=== PATIENT | male | born 1960 | race Caucasian/White ===

== ENCOUNTER → 2017-01-06 | Outpatient (CLI) | payer BC ==
--- NOTE | 2017-01-06 15:33 | DIAGNOSTIC IMAGING REPORT ---
PELVIS 1 OR 2 VIEW ROUTINE CLINICAL HISTORY: FATIGUE, HEEL PAIN, POSITIVE MAYI COMPARISON STUDY: None. FINDINGS: No fracture or dislocation within the pelvis or hips. Cartilage spaces are maintained for age. The sacrum is intact. There are few pelvic phleboliths. Soft tissues are unremarkable. No evidence for sacroiliitis. IMPRESSION: No significant abnormality within the pelvis or hips. Electronically signed by: Errol Reddy M.D. 01/06/2017 3:32 PM Dictated Date/Time: 01/06/2017 3:31 PM
== END | disposition home or self-care (01) ==
LOC: C.RAD1850 15:17
PROVIDERS: ATTEND Internal Medicine Rheumatology
DX: M35.9 Systemic involvement of connective tissue, unspecified (principal); M79.673 Pain in unspecified foot; R53.83 Other fatigue; R76.8 Other specified abnormal immunological findings in serum

== ENCOUNTER → 2017-01-12 | Outpatient (CLI) | payer BC ==
--- NOTE | 2017-01-12 15:59 | DIAGNOSTIC IMAGING REPORT ---
WHOLE BODY BONE SCAN HISTORY: M35.9 Undifferentiated connective tissue [id number] Heel pain. RADIOTRACER: 26.6 mCi Tc-99m MDP STUDY/IMAGES: Planar anterior and posterior whole body imaging was performed 3 hours following the intravenous administration of radiotracer. COMPARISON: None. FINDINGS: Focus of mild radiotracer uptake seen within the left mid cervical spine facet. This favors degenerative change. Small foci of radiotracer uptake seen within the bilateral knees likely also representing degenerative change. Small focus of radiotracer uptake seen within the right posterior calcaneus. Tiny focus of radiotracer uptake seen within the left superior orbit. IMPRESSION: 1. Focal area of radiotracer uptake seen within the right posterior calcaneus. Correlation with plain films recommended for further evaluation. 2. Tiny focus of radiotracer uptake seen in the left supraorbital rim. This is also nonspecific and can be further evaluated with a maxillofacial CT if clinically warranted. 3. Additional areas of radiotracer uptake are consistent with degenerative change. Electronically signed by: Errol Reddy M.D. 01/12/2017 3:58 PM Dictated Date/Time: 01/12/2017 3:55 PM
== END | disposition home or self-care (01) ==
LOC: C.NUCL 12:02
PROVIDERS: ATTEND Internal Medicine Rheumatology
DX: M35.9 Systemic involvement of connective tissue, unspecified (principal); M79.673 Pain in unspecified foot; R53.83 Other fatigue; R76.8 Other specified abnormal immunological findings in serum

== ENCOUNTER → 2017-04-09 | Outpatient (CLI) | payer BC ==
[2017-04-09 15:03] LABS: BASO % 0.9 %; BASO ABS # 0.05 K/uL (0-0.2); COMPLETE YES; EOS % 2.1 %; HEMATOCRIT 42.8 % (42-52); IG% 0.2 %; LYMPH % 31.1 %; LYMPH ABS # 1.65 K/uL (1.2-3.4); MEAN CELL VOLUME 94.7 fL (80-100); MEAN CORPUSCULAR HEMOGLOBIN 32.7 pg (25-34); MEAN CORPUSCULAR HGB CONC 34.6 g/dl (32-36); MEAN PLATELET VOLUME 9.6 fL (7.4-10.4); MONO % 9.6 %; NEUT % 56.1 %; PLATELET COUNT 206 K/uL (130-400); RED BLOOD COUNT 4.52 M/uL (4.7-6.1); WHITE BLOOD COUNT 5.31 K/uL (4.8-10.8)
[2017-04-09 15:11] LABS: ALT/SGPT 22 U/L (12-78); AST/SGOT 19 U/L (15-37)
== END | disposition home or self-care (01) ==
LOC: C.LAB1850 12:27
PROVIDERS: ATTEND Internal Medicine Rheumatology
DX: M35.9 Systemic involvement of connective tissue, unspecified (principal); Z79.1 Long term (current) use of non-steroidal anti-inflammatories (NSAID)

== ENCOUNTER → 2017-04-22 | Outpatient (CLI) | payer BC ==
[2017-04-28 02:37] LABS: ANTI-CENTROMERE AB <1.0 NEG AI (<1.0 NEG); ANTI-SS-A <1.0 NEG AI (<1.0 NEG); ANTI-SS-B <1.0 NEG AI (<1.0 NEG); DNA ds CRITHIDIA NEGATIVE (NEGATIVE); HLA-B27** TC 528X POSITIVE (NEGATIVE); Sm Antibody <1.0 NEG AI (<1.0 NEG)
== END | disposition home or self-care (01) ==
LOC: C.LAB1850 15:23
PROVIDERS: ATTEND Internal Medicine Rheumatology
DX: M79.673 Pain in unspecified foot (principal); Z79.1 Long term (current) use of non-steroidal anti-inflammatories (NSAID); Z79.899 Other long term (current) drug therapy; M89.8X9 Other specified disorders of bone, unspecified site; E55.9 Vitamin D deficiency, unspecified; M45.9 Ankylosing spondylitis of unspecified sites in spine

== ENCOUNTER → 2017-10-08 | Outpatient (CLI) | payer OTHER ==
--- NOTE | 2017-10-08 12:33 | DIAGNOSTIC IMAGING REPORT ---
R FOOT MIN 3 VIEWS ROUTINE CLINICAL HISTORY: CHRONIC PAIN OF R HEEL pain COMPARISON: None. DISCUSSION: The bones and joint spaces appear intact. There is no evidence of fracture, dislocation or bony disease. No significant heel spur. Considerable ossification the Achilles tendon insertion. IMPRESSION: Ossification Achilles tendon insertion. Otherwise negative study. The above report was generated using voice recognition software. It may contain grammatical, syntax or spelling errors. Electronically signed by: Abelardo Ann M.D. 10/08/2017 12:31 PM Dictated Date/Time: 10/08/2017 12:26 PM
[2017-10-08 13:10] LABS: BASO % 0.9 %; BASO ABS # 0.04 K/uL (0-0.2); EOS % 2.2 %; HEMATOCRIT 42.9 % (42-52); IG# 0.01 K/uL (0.00-0.02); LYMPH % 27.6 %; LYMPH ABS # 1.23 K/uL (1.2-3.4); MEAN CORPUSCULAR HEMOGLOBIN 33.6 pg (25-34); MEAN PLATELET VOLUME 9.1 fL (7.4-10.4); MONO % 9.4 %; MONO ABS # 0.42 K/uL (0.11-0.59); NEUT % 59.7 %; NEUT ABS # 2.66 K/uL (1.4-6.5); PLATELET COUNT 203 K/uL (130-400); RED CELL DISTRIBUTION WIDTH CV 12.6 % (11.5-14.5); RED CELL DISTRIBUTION WIDTH SD 43.8 fL (36.4-46.3); WHITE BLOOD COUNT 4.46 K/uL (4.8-10.8)
[2017-10-08 13:20] LABS: ALBUMIN 3.7 gm/dl (3.4-5.0); ALT/SGPT 20 U/L (12-78); CREATININE 1.26 mg/dl (0.60-1.40)
[2017-10-08 13:23] LABS: ALKALINE PHOSPHATASE 42 U/L (45-117); AST/SGOT 16 U/L (15-37); TOTAL PROTEIN 7.1 gm/dl (6.4-8.2)
== END | disposition home or self-care (01) ==
LOC: C.RAD1850 12:01
PROVIDERS: ATTEND Internal Medicine Rheumatology
DX: M67.80 Other specified disorders of synovium and tendon, unspecified site (principal); M54.9 Dorsalgia, unspecified; M79.671 Pain in right foot; M12.80 Other specific arthropathies, not elsewhere classified, unspecified site